=== PATIENT | female | born 1955 | race Caucasian/White ===

== ENCOUNTER 2017-09-02 09:02 | Emergency (ER) | payer BC ==
[~2017-09-02 09:02] MED LIST: Iopamidol 370 76% 100 ML VIAL ONE
[2017-09-02] MEDS ORDERED: Fentanyl 100 MCG/2 ML VIAL ONE (09:23)
[2017-09-02] MEDS ORDERED: Ondansetron HCl/PF 4 MG/2 ML Vial ONE (09:23)
[2017-09-02 09:28] LABS: #Lymphocytes 1.8 thou/uL (1.20-3.40); #Neutrophils 16.7 thou/uL (1.40-6.50); %Basophils 0.2 % (0.0-1.0); %Lymphocytes 9.2 % (21.0-51.0); %Monocytes 5.1 % (0.0-10.0); %Neutrophils 85.5 % (42.0-75.0); Hemoglobin 15.1 g/dL (12.0-16.0); Mean Corpuscular HGB CONC 33.2 g/dL (32.0-36.0); Mean Corpuscular Hemoglobin 28.5 pg (27.0-31.0); Mean Corpuscular Volume 85.7 fl (81.0-99.0); Mean Platelet Volume 7.9 fL (7.4-10.4); Platelet Count 291 thou/uL (130-400); RBC Distribution Width 11.7 % (11.5-14.5); White Blood Cell (WBC) Count 19.6 thou/uL (4.8-10.8)
[2017-09-02 09:43] LABS: ALT (SGPT) 45 U/L (8-55); AST (SGOT) 34 U/L (5-34); Albumin 4.2 g/dL (3.4-4.8); Alkaline Phosphatase 94 U/L (40-150); Anion Gap 18 mmol/L (10-20); BUN (Urea Nitrogen) 18 mg/dL (9.8-20.1); Bilirubin, Total 0.8 mg/dL (0.2-1.2); CK (CPK) 82 U/L (29-168); Calc. Creatinine Clearance 0 mL/min (70-130); Calcium 9.6 mg/dL (7.8-10.44); Carbon Dioxide 23 mmol/L (23-31); Chloride 98 mmol/L (98-107); Estimated GFR-MDRD 59; Glucose 138 mg/dL (80-115); Lipase 16 U/L (8-78); Potassium 4.2 mmol/L (3.5-5.1); Protein, Total 7.2 g/dL (6.0-8.3); Sodium 135 mmol/L (136-145)
[2017-09-02 09:44] LABS: Troponin I Less than 0.010 ng/mL (< 0.028)
[2017-09-02] MEDS ORDERED: Ketorolac Tromethamine 30 MG/ML VIAL ONE (09:48)
--- NOTE | 2017-09-02 09:53 | RAD ---
CHEST 1 VIEW: Date: 09/02/17 HISTORY: 61-year-old female with history of chest pain. Prior cholecystectomy on 09/01/17. Bloating and right upper quadrant pain with breathing. FINDINGS: There is a moderate amount of free intraperitoneal air, presumably residual from recent cholecystecto my. No confluent pneumonia or overt edema. Slight costophrenic angle blunting, probably small pleural effusions. IMPRESSION: Free intraperitoneal air, presumably from post cholecystectomy. No confluent pneumonia or overt edema . Poor inspiration. Slight costophrenic angle blunting, possibly very small effusions. POS: [facility]
--- NOTE | 2017-09-02 10:41 | CT ---
CHEST CT ANGIOGRAM INCLUDING 3D RENDERING ABDOMEN AND PELVIC CT SCAN WITH IV CONTRAST: Date: 09/02/17 HISTORY: Pain, bloating, difficulty breathing secondary to pain, elevated D-Dimer. Status post laparoscopic ch olecystectomy yesterday. FINDINGS: CHEST CT ANGIOGRAM WITH 3D RENDERING: No significant CT evidence for acute pulmonary embolism. No mediastinal mass or adenopathy. There are some minimal pleural based parenchymal changes in the dependent portions of both lungs and lower lob es, probably related to some subsegmental atelectasis. No mediastinal mass or adenopathy. No evidence for aortic aneurysm or dissection. Moderate amount of free intraperitoneal air noted within the uppe r abdomen. Recent cholecystectomy changes. IMPRESSION: No significant CT evidence for acute pulmonary embolism. Bibasilar pleural based parenchymal changes, probably subsegmental atelectasis. ABDOMEN AND PELVIC CT SCAN WITH IV CONTRAST: Again noted are bibasilar posterior pleural based parenchymal changes, probably subsegmental atelecta sis. There is a moderate amount of free intraperitoneal air. There are scattered areas of loculated a ir and some fluid within the right-sided mesentery extending somewhat from the operative bed region o f the gallbladder down into the right mid abdomen and right lower quadrant with some free fluid noted around the liver and in the right colonic gutter, and in the pelvis. The liver appears unremarkable. Pancreas, spleen, and adrenal glands are unremarkable. No evidence for renal acute obstruction. IMPRESSION: Moderate amount of free intraperitoneal air as well as some free intraperitoneal fluid. Scattered are as of small fluid collection, air collection, and fat stranding in the right side of the abdomen exte nding from the gallbladder bed region caudally down the right abdomen into the right lower quadrant. I favor these changes being related to the recent post cholecystectomy. However, if the patient's cli nical situation worsens or does not resolve over time, a short-term follow-up study might be consider ed. POS: [facility]
== END 2017-09-02 11:16 | disposition home or self-care (01) ==
LOC: SCSER 09:02
DX: G89.18 Other acute postprocedural pain (principal); E78.5 Hyperlipidemia, unspecified; F32.9 Major depressive disorder, single episode, unspecified; Z79.899 Other long term (current) drug therapy
CPT/HCPCS: 71045; 71275; 74177; 80053; 82553; 83690; 84484; 85025; 85379; 93005; 96361; 96374; 96375; J1885; J2405; J3010

== ENCOUNTER 2017-09-03 16:08 | Inpatient (IN) | payer BC ==
[2017-09-03 16:45] LABS: Hemoglobin 15.5 g/dL (12.0-16.0); Mean Corpuscular HGB CONC 32.5 g/dL (32.0-36.0); Mean Corpuscular Hemoglobin 29.8 pg (27.0-31.0); Mean Corpuscular Volume 91.7 fl (81.0-99.0); Mean Platelet Volume 7.6 fL (7.4-10.4); Platelet Count 267 thou/uL (130-400); RBC Distribution Width 12.1 % (11.5-14.5); Red Blood Cell (RBC) Count 5.19 mill/uL (4.20-5.40); White Blood Cell (WBC) Count 19.2 thou/uL (4.8-10.8)
[2017-09-03 17:01] LABS: Band 28 % (5-11); Lymphocytes 9 % (21-51); MDiff Complete? YES; Monocytes 7 % (0-10); Neutrophil 56 % (42-75); PLT Morphology Comment Appears Adequate; RBC Morphology Normal; Vacuoles SLIGHT
[2017-09-03 17:05] LABS: ALT (SGPT) 35 U/L (8-55); AST (SGOT) 25 U/L (5-34); Albumin 3.8 g/dL (3.4-4.8); Alkaline Phosphatase 113 U/L (40-150); Anion Gap 15 mmol/L (10-20); BUN (Urea Nitrogen) 14 mg/dL (9.8-20.1); Bilirubin, Total 1.6 mg/dL (0.2-1.2); Calc. Creatinine Clearance 0 mL/min (70-130); Calcium 9.8 mg/dL (7.8-10.44); Carbon Dioxide 24 mmol/L (23-31); Chloride 97 mmol/L (98-107); Estimated GFR-MDRD 59; Globulin 3.5 g/dL (2.4-3.5); Glucose 114 mg/dL (80-115); Potassium 4.5 mmol/L (3.5-5.1); Protein, Total 7.3 g/dL (6.0-8.3); Sodium 131 mmol/L (136-145)
[2017-09-03] MEDS ORDERED: Fentanyl 100 MCG/2 ML VIAL ONE (17:34)
[2017-09-03] MEDS ORDERED: Ondansetron HCl/PF 4 MG/2 ML Vial ONE (17:34)
[2017-09-03] MEDS ORDERED: Piperacillin/Tazobactam 3.375 GM in Sodium Chloride 0.9% 100 ML IVPB SCH (17:45)
[2017-09-03] MEDS ORDERED: Acetaminophen 1,000 MG in Premix Bag 1 BAG IVPB SCH (17:45)
[2017-09-03 18:16] LABS: Bilirubin Negative (Negative); Blood, Urine Trace (Negative); Clarity CLEAR (Clear); Glucose, Urine (Dipstick) Negative (Negative); Leukocyte Negative (Negative); Nitrite Negative (Negative); Protein, Urine (Dipstick) 30 mg/dL (Neg-Trace); Specific Gravity, Urine 1.014 (1.002-1.036); Urobilinogen 0.2 mg/dL (0.2-1.0); pH, Urine 7.5 (5.0-9.0)
--- NOTE | 2017-09-03 18:17 | HP ---
CHIEF COMPLAINT: Abdominal pain. HISTORY OF PRESENT ILLNESS: This is a 61-year-old female who is status post cholecystectomy on by Dr. Galindo for symptomatic gallstones. She returned to the emergency room yesterday where she kerns d CT and labs revealing infectious count was elevated; however, she was afebrile, feeling better afte r IV fluids. She had some inflammatory change in the right upper quadrant and appropriate amount of postoperative air. The patient notes fever to 102 this afternoon. I had her come back to the emerge ncy room. She is complaining of pain in the whole abdomen that is mild, more severe in the right zeke e, not really drink in much at home, just does not have an appetite. No passing gas or bowel movemen t since Monday. PAST MEDICAL HISTORY: She denies any significant heart, lung, diabetes. She does have high choleste rol, anxiety. PAST SURGICAL HISTORY: Hysterectomy, laparoscopic cholecystectomy. MEDICINES TAKEN DAILY: Bupropion and a hypercholesterol medication. ALLERGIES: She has had no known drug allergies. REVIEW OF SYSTEMS: Otherwise, negative. PHYSICAL EXAMINATION: VITAL SIGNS: Blood pressure 124/85, her pulse is 120, temperature now is 102, respirations are 14. HEENT: Sclerae are anicteric. Oropharynx clear. NECK: No lymphadenopathy. CHEST: Clear. HEART: Increased rate, regular rhythm. ABDOMEN: Soft, diffusely distended, mildly tender, more tender in the right side. Healing incisions without hernia or infection. LABORATORY DATA: White cell count is 19. She has 28 bands. Sodium 131, potassium 4.5, creatinine 0 .96, bilirubin 1.6. Alkaline phosphatase 113. AST, ALT are normal 25 and 35. ASSESSMENT: Postoperative fever with CT showing some inflammatory change yesterday, bilirubin now is 1.7. PLAN: Admit to hospital for IV fluid resuscitation, broad-spectrum antibiotics, supportive care. It could be a bile leak. Based on her labs tomorrow, we will decide whether a repeat CAT scan or proce ed with HIDA scan.
[2017-09-03 18:18] LABS: Bacteria/HPF None Seen HPF (None Seen); Hyaline Casts/LPF 0-3 HYALINE CAST LPF (0-3 Hyaline); RBC/HPF 0-3 HPF (0-3); Squamous Epithelial None Seen HPF (0-3); WBC/HPF 0-3 HPF (0-3)
--- NOTE | 2017-09-03 19:38 | RAD ---
CHEST ONE VIEW:: History: Post op fever. Comparison: Prior day. FINDINGS: Pneumoperitoneum is similar. There is elevation of the right hemidiaphragm with atelectasis. No pneum othorax. The left lung is relatively clear. IMPRESSION: Similar examination of chest. There is pneumoperitoneum. POS: [facility]
[2017-09-03] MEDS ORDERED: Promethazine HCl 25 MG/ML VIAL IM PRN (20:43)
[2017-09-03] MEDS ORDERED: Dextrose 50% Abboject 50 ML SYRINGE SLOW IVP PRN (20:43)
[2017-09-03] MEDS ORDERED: hydrALAZINE 20 MG/ML VIAL SLOW IVP PRN (20:43)
[2017-09-03] MEDS ORDERED: Calcium Carbonate 500 MG ChewTAB PO PRN (20:43)
[2017-09-03] MEDS ORDERED: Dextrose 5% in Water 1,000 ML IV PRN (20:43)
[2017-09-03] MEDS ORDERED: Fentanyl 100 MCG/2 ML VIAL SLOW IVP PRN (20:43)
[2017-09-03] MEDS ORDERED: Acetaminophen 1,000 MG in Premix Bag 1 BAG IVPB PRN (20:43)
[2017-09-03] MEDS ORDERED: Mag-Al 1200 mg/1200 mg/30 ML UDCUP PO PRN (20:43)
[2017-09-03] MEDS: D5 1/2 NS w/20 mEq KCL 1,000 ML IV SCH (21:54)
[2017-09-03] MEDS: Famotidine 20 MG TAB PO SCH (21:56)
[2017-09-03] MEDS: Famotidine/PF 20 mg/2ml Vial SLOW IVP SCH (21:56)
[2017-09-03] MEDS: Ketorolac Tromethamine 30 MG/ML VIAL IVP PRN (21:56)
[2017-09-03] MEDS: Ondansetron HCl/PF 4 MG/2 ML Vial IVP PRN (21:56)
[2017-09-04] MEDS: Piperacillin/Tazobactam 3.375 GM in Sodium Chloride 0.9% 100 ML IVPB SCH ×5 (00:20→23:57)
[2017-09-04 02:13] VITALS: BMI 26.1
[2017-09-04 04:22] LABS: #Eosinphils 0.4 thou/uL (0.0-0.7); #Lymphocytes 1.6 thou/uL (1.20-3.40); #Monocytes 0.9 thou/uL (0.11-0.59); %Basophils 0.3 % (0.0-1.0); %Eosinophils 2.6 % (0.0-10.0); %Lymphocytes 10.5 % (21.0-51.0); %Monocytes 5.8 % (0.0-10.0); %Neutrophils 80.8 % (42.0-75.0); Hemoglobin 11.2 g/dL (12.0-16.0); Mean Corpuscular HGB CONC 32.4 g/dL (32.0-36.0); Mean Corpuscular Hemoglobin 30.1 pg (27.0-31.0); Mean Corpuscular Volume 92.8 fl (81.0-99.0); Mean Platelet Volume 7.5 fL (7.4-10.4); Platelet Count 190 thou/uL (130-400); RBC Distribution Width 12.1 % (11.5-14.5); Red Blood Cell (RBC) Count 3.72 mill/uL (4.20-5.40); White Blood Cell (WBC) Count 14.8 thou/uL (4.8-10.8)
[2017-09-04 04:56] LABS: ALT (SGPT) 19 U/L (8-55); AST (SGOT) 13 U/L (5-34); Albumin 2.5 g/dL (3.4-4.8); Alkaline Phosphatase 82 U/L (40-150); Anion Gap 7 mmol/L (10-20); BUN (Urea Nitrogen) 10 mg/dL (9.8-20.1); Bilirubin, Total 0.9 mg/dL (0.2-1.2); Calc. Creatinine Clearance 65 mL/min (70-130); Calcium 7.9 mg/dL (7.8-10.44); Carbon Dioxide 25 mmol/L (23-31); Chloride 109 mmol/L (98-107); Estimated GFR-MDRD 73; Globulin 2.3 g/dL (2.4-3.5); Glucose 168 mg/dL (80-115); Lipase Less than 4 U/L (8-78); Potassium 4.4 mmol/L (3.5-5.1); Protein, Total 4.8 g/dL (6.0-8.3); Sodium 137 mmol/L (136-145)
[2017-09-04] MEDS: Fentanyl 100 MCG/2 ML VIAL SLOW IVP PRN ×2 (06:26→08:20)
[2017-09-04] MEDS: D5 1/2 NS w/20 mEq KCL 1,000 ML IV SCH ×3 (07:22→20:33)
[2017-09-04] MEDS: Ondansetron HCl/PF 4 MG/2 ML Vial IVP PRN (08:19)
[2017-09-04] MEDS: Famotidine/PF 20 mg/2ml Vial SLOW IVP SCH ×2 (08:19→20:23)
[2017-09-04] MEDS: Famotidine 20 MG TAB PO SCH ×2 (09:52→20:41)
[2017-09-04] MEDS: Ketorolac Tromethamine 30 MG/ML VIAL IVP PRN ×2 (10:31→17:47)
--- NOTE | 2017-09-04 11:03 | CT ---
CT OF THE ABDOMEN AND PELVIS WITH CONTRAST: Date: 09/04/17 COMPARISON: None. HISTORY: Right-sided abdominal pain since cholecystectomy on Monday. Pain is in the right lower quadrant and i s associated with fever. TECHNIQUE: Multiple contiguous axial images were obtained in a CT of the abdomen and pelvis with contrast. PO co ntrast was administered. Coronal reformats were performed. FINDINGS: The patient is status post cholecystectomy. Enteric contrast was administered. This is seen within mu ltiple small bowel loops. There is a small amount of free fluid in the abdomen and pelvis. Moderate f ree air seen in the abdomen. There is an area in the right lower quadrant of the abdomen adjacent to the cecum where there is small bowel contrast which does not appear to conform to small bowel loops a nd is concerning for leak of enteric contrast. The likely source for this leak is a small bowel loop in the right lower quadrant of the abdomen. The fluid collection and enteric contrast are seen in an area measuring approximately 12.2 cm in length and 3.9 cm in width. The small bowel loops are normal in caliber without significant distention. The colon is nondistended. There are scattered diverticula in the colon. The liver, kidneys, and adrenal glands are unremarkable. Calcifications in the spleen are likely from prior granulomatous disease. There is a calcification in the body of the pancreas nearing the tail o f the pancreas. The patient is status post hysterectomy. No abdominal or pelvic lymphadenopathy seen. Atherosclerotic calcifications are seen in the aorta. There is a small right pleural effusion with adjacent atelectasis. Mild degenerative changes are seen in the spine. Stranding changes are seen in the abdominal wall from recent surgery. IMPRESSION: 1. There appears to be a small bowel injury with leak of air, free fluid, and enteric contrast in th e right lower quadrant of the abdomen. 2. Diverticulosis. A message was left on Dr. Galindo's phone at 1025 hours on 09/04/17. In addition, Dr. Galindo's assistant womens volleyball coach , Derrek, was notified of the findings at 1026 hours on 09/04/17. She will attempt to get ahold of Ang Galindo urgently. CODE CR. POS: [facility]
[2017-09-04] MEDS ORDERED: Bupivacaine/Epinephrine 0.25% 30 ML VIAL ONE (13:17)
[2017-09-04] MEDS ORDERED: Fentanyl 100 MCG/2 ML VIAL ONE ×3 (13:25→16:16)
[2017-09-04] MEDS ORDERED: PROPOFOL 200 MG/20 ML VIAL ONE (14:17)
[2017-09-04] MEDS ORDERED: PHENYLEPHRINE-NS 100 MCG/ML 10 ML SYRINGE ONE (14:17)
[2017-09-04] MEDS ORDERED: Glycopyrrolate 0.2 MG/ML 5 ML SYRINGE ONE (14:17)
[2017-09-04] MEDS ORDERED: Lidocaine 1% PF 5 ML VIAL ONE (14:17)
[2017-09-04] MEDS ORDERED: Dexamethasone 20 MG/5 ML VIAL ONE (14:17)
[2017-09-04] MEDS ORDERED: Morphine 4 MG/ML Carpuject SLOW IVP PRN ×2 (14:58→15:07)
[2017-09-04] MEDS ORDERED: Ondansetron HCl/PF 4 MG/2 ML Vial IVP PRN ×2 (14:58→15:17)
[2017-09-04] MEDS ORDERED: Dextrose 5% in Water 1,000 ML IV PRN (14:58)
[2017-09-04] MEDS ORDERED: Promethazine HCl 25 MG/ML VIAL IM PRN ×3 (14:58→15:25)
[2017-09-04] MEDS ORDERED: hydrALAZINE 20 MG/ML VIAL SLOW IVP PRN (14:58)
[2017-09-04] MEDS ORDERED: Dextrose 50% Abboject 50 ML SYRINGE SLOW IVP PRN (14:58)
[2017-09-04] MEDS ORDERED: Meperidine HCl/PF 25 MG/ML VIAL SLOW IVP PRN (15:17)
[2017-09-04] MEDS ORDERED: Promethazine HCl 25 MG/ML VIAL ONE (15:22)
[2017-09-04] MEDS ORDERED: diphenhydrAMINE 50 MG/ML VIAL IM PRN (15:25)
[2017-09-04] MEDS ORDERED: Zolpidem Tartrate 5 MG TAB PO PRN (15:25)
[2017-09-04] MEDS ORDERED: diphenhydrAMINE 50 MG/ML VIAL IVP PRN (15:25)
[2017-09-04] MEDS ORDERED: Naloxone HCl 0.4 mg/ml Vial IV PRN (15:25)
[2017-09-04] MEDS ORDERED: Fentanyl 5000 MCG/250 ML CADD IVPB PRN (15:25)
[2017-09-04] MEDS ORDERED: diphenhydrAMINE 25 MG CAP PO PRN (15:25)
[2017-09-04] MEDS ORDERED: Communication Order-Pharmacy FS SCH (15:30)
[2017-09-04] MEDS ORDERED: ISOVUE-370 76%-LOCM 1 ML ONE (15:44)
[2017-09-04] MEDS ORDERED: fentaNYL Citrate/PF 2,000 MCG in Sodium Chloride 0.9% 60 ML IV PRN (15:45)
--- NOTE | 2017-09-04 16:26 | HP ---
CHIEF COMPLAINT: Abdominal pain. HISTORY OF PRESENT ILLNESS: The patient is a 61-year-old female who underwent a laparoscopic cholecy stectomy on Monday. She developed severe pain and fever to 102 associated with nausea, no vomiting. Her pain is primarily on the right lower side. She had normal liver function tests. She is not pas sing flatus, no bowel movement. PAST MEDICAL HISTORY: Reflux. PAST SURGICAL HISTORY: Cholecystectomy, hysterectomy, section. MEDICATIONS: Bupropion, atorvastatin, alprazolam, Pepcid. ALLERGIES: No known drug allergies. SOCIAL HISTORY: , one half smoke per day, moderate alcohol. PHYSICAL EXAMINATION: VITAL SIGNS: Temperature 98.2, pulse 91, blood pressure 99/63. GENERAL: Lying still in discomfort. HEENT: Unremarkable. LUNGS: Clear. HEART: Regular rate and rhythm. ABDOMEN: Soft, mild right lower quadrant tenderness. She has a well healed surgical scar low midlin e. Fresh incisions from laparoscopic cholecystectomy. LABORATORY DATA AND X-RAY FINDINGS: White count 14.8, hemoglobin and hematocrit 11 and 34, platelet count 190. Electrolytes are fine. Initial CT showed some free fluid and free air consistent with re cent laparoscopy; however, she has had a repeated of that and it is consistent with a small bowel inj ury. ASSESSMENT: Small injury. PLAN: Return to or with repair of small bowel.
--- NOTE | 2017-09-04 16:34 | OP ---
PREOPERATIVE DIAGNOSIS: Small bowel enterotomy with abscess. SURGEON: Dago Galindo M.D. PROCEDURES PERFORMED: Diagnostic laparoscopy converted to exploratory laparotomy with repair of ente rotomy and drainage of abscess. INDICATIONS: This is a 61-year-old female who underwent a laparoscopic cholecystectomy on Monday. S he reportedly was having a lot of pain and then started having fever. She went to the emergency room where a CT scan showed some free air and free fluid consistent with postop findings. She had a very elevated white count and continued to get sicker, then she got better, but she was still pretty tend er on the right lower quadrant. A repeat CT scan with contrast showed contrast extravasation into an abscess cavity consistent with an enterotomy. FINDINGS: A mid small bowel enterotomy and about 150 mL abscess cavity. PROCEDURE IN DETAIL: After informed consent was obtained, the patient was taken to the operating francesco m and given general endotracheal anesthesia. She was placed in the supine position. Her abdomen was prepped and draped in the usual fashion. Local anesthesia infiltrated subcutaneously and deep and a 5 mm incision was performed on the left abdomen. A Veress needle inserted. Drop test performed. P neumoperitoneum was created to a volume of 2 liters of carbon dioxide. Utilizing a bladeless 5 mm tr ocar and 0 degree laparoscope, direct visual entry in the abdominal cavity was performed. Pneumoperi toneum was created to a pressure of 15 mmHg. There was no obvious enteric fluid initially within the abdomen. There were some adhesions in the right lower abdomen from a previous appendectomy. Using the LigaSure, these were taken down and this allowed reflection of the omentum medially and there was a cavity of enteric fluid. Cultures were obtained. This was aspirated and the small bowel run back wards, but I could not find the source. There was too much inflammation, because it was tucked up un derneath the omentum and I just could not figure it out, so I converted to an open procedure. Her pr evious midline incision was opened. The subcu divided sharply. The fascia was incised with a 10 erna de. This allowed me to run the bowel from ligament of Treitz to ileocecal valve or from ileocecal va lve to ligament of Treitz and there I was able to identify and find the enterotomy in the mid small b owel. This enterotomy was closed transversely with interrupted 3-0 Vicryl sutures. The rest of the small bowel was run and repeatedly run and there were no other injuries seen. The abdomen was thorou ghly irrigated. Irrigation fluid removed with multiple liters of fluid, but there was kind of a rind around where the abscess cavity was and for that reason, a drain was placed and brought out through a right lower quadrant abdomen and placed in the abscess cavity is a 19-Urdu round drain. The hemo stasis assured. The omentum placed anteriorly and the fascia closed with a running loop #1 PDS. The subcutaneous was irrigated and skin closed loosely with skin jorge. Katrin were placed between the jorge and a sterile bandage applied. The two 5 mm laparoscopic incisions were also closed with in terrupted 4-0 Rapide. Dermabond applied to this. The patient tolerated the procedure well and trans ferred to recovery in good condition.
[2017-09-05 04:22] LABS: #Basophils 0.2 thou/uL (0.0-0.2); #Lymphocytes 0.6 thou/uL (1.20-3.40); #Monocytes 0.6 thou/uL (0.11-0.59); #Neutrophils 10.9 thou/uL (1.40-6.50); %Basophils 1.6 % (0.0-1.0); %Eosinophils 0.1 % (0.0-10.0); %Monocytes 5.2 % (0.0-10.0); %Neutrophils 88.1 % (42.0-75.0); Hemoglobin 10.5 g/dL (12.0-16.0); Mean Corpuscular HGB CONC 31.7 g/dL (32.0-36.0); Mean Corpuscular Hemoglobin 29.6 pg (27.0-31.0); Mean Corpuscular Volume 93.4 fl (81.0-99.0); Mean Platelet Volume 7.9 fL (7.4-10.4); Platelet Count 216 thou/uL (130-400); RBC Distribution Width 12.2 % (11.5-14.5); Red Blood Cell (RBC) Count 3.55 mill/uL (4.20-5.40); White Blood Cell (WBC) Count 12.3 thou/uL (4.8-10.8)
[2017-09-05 04:24] LABS: Anion Gap 9 mmol/L (10-20); BUN (Urea Nitrogen) 6 mg/dL (9.8-20.1); Calc. Creatinine Clearance 69 mL/min (70-130); Calcium 8.2 mg/dL (7.8-10.44); Carbon Dioxide 25 mmol/L (23-31); Chloride 108 mmol/L (98-107); Estimated GFR-MDRD 77; Glucose 187 mg/dL (80-115); Sodium 137 mmol/L (136-145)
[2017-09-05] MEDS: Piperacillin/Tazobactam 3.375 GM in Sodium Chloride 0.9% 100 ML IVPB SCH ×4 (05:21→23:07)
[2017-09-05] MEDS: D5 1/2 NS w/20 mEq KCL 1,000 ML IV SCH ×3 (05:21→18:09)
[2017-09-05] MEDS: Enoxaparin Sodium 40 MG/0.4 ML SYRINGE SC SCH (08:32)
[2017-09-05] MEDS: Famotidine/PF 20 mg/2ml Vial SLOW IVP SCH ×2 (08:33→23:15)
[2017-09-05] MEDS: Famotidine 20 MG TAB PO SCH ×2 (08:33→23:17)
--- NOTE | 2017-09-05 13:53 | PDOC.GSPN ---
Surgery Progress Note: Subj - Subjective Narrative: Pain well controlled. No nausea. Surgery Progress Note: Obj - Vital signs Vital signs: Vital Signs - Most Recent Temp Pulse Resp BP Pulse Ox 97.6 F 75 16 147/79 H 95 09/05/17 12:27 09/05/17 12:27 09/05/17 12:27 09/05/17 12:27 09/05/17 12:27 - Physical Exam General: no distress Abdomen: soft, tender (appropriately), distended Wound: dressing clean,dry,intact Surgery Progress Note: Results - Labs Result Diagrams: 09/05/17 03:06 09/05/17 03:06 Lab results: Laboratory Results WBC 12.3 thou/uL (4.8-10.8) H 09/05/17 03:06 RBC 3.55 mill/uL (4.20-5.40) L 09/05/17 03:06 Hgb 10.5 g/dL (12.0-16.0) L 09/05/17 03:06 Hct 33.2 % (36.0-47.0) L 09/05/17 03:06 MCV 93.4 fl (81.0-99.0) 09/05/17 03:06 MCH 29.6 pg (27.0-31.0) 09/05/17 03:06 MCHC 31.7 g/dL (32.0-36.0) L 09/05/17 03:06 RDW 12.2 % (11.5-14.5) 09/05/17 03:06 Plt Count 216 thou/uL (130-400) 09/05/17 03:06 MPV 7.9 fL (7.4-10.4) 09/05/17 03:06 Neutrophils % 88.1 % (42.0-75.0) H 09/05/17 03:06 Neutrophils % (Manual) 56 % (42-75) 09/03/17 16:32 Band Neuts % (Manual) 28 % (5-11) H 09/03/17 16:32 Lymphocytes % 5.0 % (21.0-51.0) L 09/05/17 03:06 Lymphocytes % (Manual) 9 % (21-51) L 09/03/17 16:32 Monocytes % 5.2 % (0.0-10.0) 09/05/17 03:06 Monocytes % (Manual) 7 % (0-10) 09/03/17 16:32 Eosinophils % 0.1 % (0.0-10.0) 09/05/17 03:06 Basophils % 1.6 % (0.0-1.0) H 09/05/17 03:06 Neutrophils # 10.9 thou/uL (1.40-6.50) H 09/05/17 03:06 Lymphocytes # 0.6 thou/uL (1.20-3.40) L 09/05/17 03:06 Monocytes # 0.6 thou/uL (0.11-0.59) H 09/05/17 03:06 Eosinophils # 0.0 thou/uL (0.0-0.7) 09/05/17 03:06 Basophils # 0.2 thou/uL (0.0-0.2) 09/05/17 03:06 WBC Morphology SLIGHT 09/03/17 16:32 Plt Morphology Comment Appears Adequate 09/03/17 16:32 RBC Morph Comment Normal 09/03/17 16:32 Sodium 137 mmol/L (136-145) 09/05/17 03:06 Potassium 5.0 mmol/L (3.5-5.1) 09/05/17 03:06 Chloride 108 mmol/L (98-107) H 09/05/17 03:06 Carbon Dioxide 25 mmol/L (23-31) 09/05/17 03:06 Anion Gap 9 mmol/L (10-20) L 09/05/17 03:06 BUN 6 mg/dL (9.8-20.1) L 09/05/17 03:06 Creatinine 0.76 mg/dL (0.6-1.1) 09/05/17 03:06 Estimated GFR (MDRD) 77 09/05/17 03:06 Glucose 187 mg/dL (80-115) H 09/05/17 03:06 POC Glucose 137 mg/dL (70-110) H 09/04/17 17:12 Lactic Acid 1.4 mmol/L (0.5-2.2) 09/03/17 16:33 Calcium 8.2 mg/dL (7.8-10.44) 09/05/17 03:06 Total Bilirubin 0.9 mg/dL (0.2-1.2) 09/04/17 03:50 AST 13 U/L (5-34) 09/04/17 03:50 ALT 19 U/L (8-55) 09/04/17 03:50 Alkaline Phosphatase 82 U/L (40-150) 09/04/17 03:50 Serum Total Protein 4.8 g/dL (6.0-8.3) L 09/04/17 03:50 Albumin 2.5 g/dL (3.4-4.8) L 09/04/17 03:50 Globulin 2.3 g/dL (2.4-3.5) L 09/04/17 03:50 Albumin/Globulin Ratio 1.1 g/dL (1.2-2.2) L 09/04/17 03:50 Lipase Less than 4 U/L (8-78) L 09/04/17 03:50 Urine Color YELLOW (Yellow) 09/03/17 18:00 Urine Clarity CLEAR (Clear) 09/03/17 18:00 Urine pH 7.5 (5.0-9.0) 09/03/17 18:00 Ur Specific [place] 1.014 (1.002-1.036) 09/03/17 18:00 Urine Protein 30 mg/dL (Neg-Trace) H 09/03/17 18:00 Urine Glucose (UA) Negative mg/dL (Negative) 09/03/17 18:00 Urine Ketones 40 mg/dL (Negative) H 09/03/17 18:00 Urine Blood Trace (Negative) H 09/03/17 18:00 Urine Nitrite Negative (Negative) 09/03/17 18:00 Urine Bilirubin Negative (Negative) 09/03/17 18:00 Urine Urobilinogen 0.2 mg/dL (0.2-1.0) 09/03/17 18:00 Ur Leukocyte Esterase Negative (Negative) 09/03/17 18:00 Urine RBC 0-3 HPF (0-3) 09/03/17 18:00 Urine WBC 0-3 HPF (0-3) 09/03/17 18:00 Ur Squamous Epith Cells None Seen HPF (0-3) 09/03/17 18:00 Urine Bacteria None Seen HPF (None Seen) 09/03/17 18:00 Hyaline Casts 0-3 HYALINE CAST LPF (0-3 Hyaline) 09/03/17 18:00 Surgery Progress Note: A/P - Problem (1) Peritonitis Current Visit: Yes Code(s): K65.9 - PERITONITIS, UNSPECIFIED Status: Acute Assessment and Plan: Will allow clears. encouraged ambulation
[2017-09-06] MEDS: Piperacillin/Tazobactam 3.375 GM in Sodium Chloride 0.9% 100 ML IVPB SCH ×4 (05:03→23:04)
[2017-09-06 05:54] LABS: #Basophils 0.1 thou/uL (0.0-0.2); #Eosinphils 0.9 thou/uL (0.0-0.7); #Lymphocytes 2.1 thou/uL (1.20-3.40); #Monocytes 0.8 thou/uL (0.11-0.59); #Neutrophils 6.8 thou/uL (1.40-6.50); %Basophils 0.5 % (0.0-1.0); %Eosinophils 8.7 % (0.0-10.0); %Neutrophils 63.7 % (42.0-75.0); Mean Corpuscular Hemoglobin 30.6 pg (27.0-31.0); Mean Corpuscular Volume 92.8 fl (81.0-99.0); Mean Platelet Volume 7.5 fL (7.4-10.4); Platelet Count 235 thou/uL (130-400); RBC Distribution Width 12.3 % (11.5-14.5); Red Blood Cell (RBC) Count 3.26 mill/uL (4.20-5.40); White Blood Cell (WBC) Count 10.7 thou/uL (4.8-10.8)
[2017-09-06 06:19] LABS: Anion Gap 10 mmol/L (10-20); BUN (Urea Nitrogen) 8 mg/dL (9.8-20.1); Calc. Creatinine Clearance 69 mL/min (70-130); Calcium 8.3 mg/dL (7.8-10.44); Carbon Dioxide 26 mmol/L (23-31); Chloride 106 mmol/L (98-107); Estimated GFR-MDRD 77; Glucose 106 mg/dL (80-115); Potassium 3.9 mmol/L (3.5-5.1); Sodium 138 mmol/L (136-145)
[2017-09-06] MEDS: Famotidine/PF 20 mg/2ml Vial SLOW IVP SCH ×2 (08:25→18:04)
[2017-09-06] MEDS: Enoxaparin Sodium 40 MG/0.4 ML SYRINGE SC SCH (08:25)
[2017-09-06] MEDS: Famotidine 20 MG TAB PO SCH ×2 (08:30→18:02)
[2017-09-06] MEDS ORDERED: D5 1/2 NS w/20 mEq KCL 1,000 ML IV SCH (12:52)
--- NOTE | 2017-09-06 13:39 | PDOC.GSPN ---
Surgery Progress Note: Subj - Subjective Narrative: Passing flatus, no nausea, tolerating clear liquids Surgery Progress Note: Obj - Vital signs Vital signs: Vital Signs - Most Recent Temp Pulse Resp BP Pulse Ox 97.9 F 78 14 165/81 H 92 L 09/06/17 11:31 09/06/17 11:31 09/06/17 11:31 09/06/17 11:31 09/06/17 11:31 - Physical Exam General: no distress Respiratory: clear to auscultation Abdomen: non tender Wound: dressing clean,dry,intact Surgery Progress Note: Results - Labs Result Diagrams: 09/06/17 04:36 09/06/17 04:36 Lab results: Laboratory Results WBC 10.7 thou/uL (4.8-10.8) 09/06/17 04:36 RBC 3.26 mill/uL (4.20-5.40) L 09/06/17 04:36 Hgb 10.0 g/dL (12.0-16.0) L 09/06/17 04:36 Hct 30.3 % (36.0-47.0) L 09/06/17 04:36 MCV 92.8 fl (81.0-99.0) 09/06/17 04:36 MCH 30.6 pg (27.0-31.0) 09/06/17 04:36 MCHC 33.0 g/dL (32.0-36.0) 09/06/17 04:36 RDW 12.3 % (11.5-14.5) 09/06/17 04:36 Plt Count 235 thou/uL (130-400) 09/06/17 04:36 MPV 7.5 fL (7.4-10.4) 09/06/17 04:36 Neutrophils % 63.7 % (42.0-75.0) 09/06/17 04:36 Neutrophils % (Manual) 56 % (42-75) 09/03/17 16:32 Band Neuts % (Manual) 28 % (5-11) H 09/03/17 16:32 Lymphocytes % 20.0 % (21.0-51.0) L 09/06/17 04:36 Lymphocytes % (Manual) 9 % (21-51) L 09/03/17 16:32 Monocytes % 7.0 % (0.0-10.0) 09/06/17 04:36 Monocytes % (Manual) 7 % (0-10) 09/03/17 16:32 Eosinophils % 8.7 % (0.0-10.0) 09/06/17 04:36 Basophils % 0.5 % (0.0-1.0) 09/06/17 04:36 Neutrophils # 6.8 thou/uL (1.40-6.50) H 09/06/17 04:36 Lymphocytes # 2.1 thou/uL (1.20-3.40) 09/06/17 04:36 Monocytes # 0.8 thou/uL (0.11-0.59) H 09/06/17 04:36 Eosinophils # 0.9 thou/uL (0.0-0.7) H 09/06/17 04:36 Basophils # 0.1 thou/uL (0.0-0.2) 09/06/17 04:36 WBC Morphology SLIGHT 09/03/17 16:32 Plt Morphology Comment Appears Adequate 09/03/17 16:32 RBC Morph Comment Normal 09/03/17 16:32 Sodium 138 mmol/L (136-145) 09/06/17 04:36 Potassium 3.9 mmol/L (3.5-5.1) 09/06/17 04:36 Chloride 106 mmol/L (98-107) 09/06/17 04:36 Carbon Dioxide 26 mmol/L (23-31) 09/06/17 04:36 Anion Gap 10 mmol/L (10-20) 09/06/17 04:36 BUN 8 mg/dL (9.8-20.1) L 09/06/17 04:36 Creatinine 0.76 mg/dL (0.6-1.1) 09/06/17 04:36 Estimated GFR (MDRD) 77 09/06/17 04:36 Glucose 106 mg/dL (80-115) 09/06/17 04:36 POC Glucose 137 mg/dL (70-110) H 09/04/17 17:12 Lactic Acid 1.4 mmol/L (0.5-2.2) 09/03/17 16:33 Calcium 8.3 mg/dL (7.8-10.44) 09/06/17 04:36 Total Bilirubin 0.9 mg/dL (0.2-1.2) 09/04/17 03:50 AST 13 U/L (5-34) 09/04/17 03:50 ALT 19 U/L (8-55) 09/04/17 03:50 Alkaline Phosphatase 82 U/L (40-150) 09/04/17 03:50 Serum Total Protein 4.8 g/dL (6.0-8.3) L 09/04/17 03:50 Albumin 2.5 g/dL (3.4-4.8) L 09/04/17 03:50 Globulin 2.3 g/dL (2.4-3.5) L 09/04/17 03:50 Albumin/Globulin Ratio 1.1 g/dL (1.2-2.2) L 09/04/17 03:50 Lipase Less than 4 U/L (8-78) L 09/04/17 03:50 Urine Color YELLOW (Yellow) 09/03/17 18:00 Urine Clarity CLEAR (Clear) 09/03/17 18:00 Urine pH 7.5 (5.0-9.0) 09/03/17 18:00 Ur Specific [place] 1.014 (1.002-1.036) 09/03/17 18:00 Urine Protein 30 mg/dL (Neg-Trace) H 09/03/17 18:00 Urine Glucose (UA) Negative mg/dL (Negative) 09/03/17 18:00 Urine Ketones 40 mg/dL (Negative) H 09/03/17 18:00 Urine Blood Trace (Negative) H 09/03/17 18:00 Urine Nitrite Negative (Negative) 09/03/17 18:00 Urine Bilirubin Negative (Negative) 09/03/17 18:00 Urine Urobilinogen 0.2 mg/dL (0.2-1.0) 09/03/17 18:00 Ur Leukocyte Esterase Negative (Negative) 09/03/17 18:00 Urine RBC 0-3 HPF (0-3) 09/03/17 18:00 Urine WBC 0-3 HPF (0-3) 09/03/17 18:00 Ur Squamous Epith Cells None Seen HPF (0-3) 09/03/17 18:00 Urine Bacteria None Seen HPF (None Seen) 09/03/17 18:00 Hyaline Casts 0-3 HYALINE CAST LPF (0-3 Hyaline) 09/03/17 18:00 Surgery Progress Note: A/P - Problem (1) Peritonitis Current Visit: Yes Code(s): K65.9 - PERITONITIS, UNSPECIFIED Status: Acute Assessment and Plan: TKO IVF, advance to full liquids
[2017-09-06] MEDS: Ketorolac Tromethamine 30 MG/ML VIAL IVP PRN ×2 (13:55→23:04)
[2017-09-07] MEDS: Ketorolac Tromethamine 30 MG/ML VIAL IVP PRN (05:40)
[2017-09-07] MEDS: Piperacillin/Tazobactam 3.375 GM in Sodium Chloride 0.9% 100 ML IVPB SCH ×4 (05:40→23:58)
[2017-09-07] MEDS: Famotidine 20 MG TAB PO SCH ×2 (09:17→20:17)
[2017-09-07] MEDS: Enoxaparin Sodium 40 MG/0.4 ML SYRINGE SC SCH (09:18)
[2017-09-07] MEDS: Famotidine/PF 20 mg/2ml Vial SLOW IVP SCH ×2 (09:19→20:14)
[2017-09-07] MEDS ORDERED: Morphine 4 MG/ML Carpuject IVP PRN (09:54)
[2017-09-07] MEDS ORDERED: Morphine 2 MG/ML SYRINGE SLOW IVP PRN (10:41)
--- NOTE | 2017-09-07 13:15 | PDOC.GSPN ---
Surgery Progress Note: Subj - Subjective Narrative: tolerated full liquids, no nausea, passing gas Surgery Progress Note: Obj - Vital signs Vital signs: Vital Signs - Most Recent Temp Pulse Resp BP Pulse Ox 99.0 F 80 18 141/77 H 95 09/07/17 12:00 09/07/17 12:00 09/07/17 12:00 09/07/17 12:00 09/07/17 12:00 - Physical Exam General: no distress Abdomen: non tender Surgery Progress Note: Results - Labs Result Diagrams: 09/06/17 04:36 09/06/17 04:36 Lab results: Laboratory Results WBC 10.7 thou/uL (4.8-10.8) 09/06/17 04:36 RBC 3.26 mill/uL (4.20-5.40) L 09/06/17 04:36 Hgb 10.0 g/dL (12.0-16.0) L 09/06/17 04:36 Hct 30.3 % (36.0-47.0) L 09/06/17 04:36 MCV 92.8 fl (81.0-99.0) 09/06/17 04:36 MCH 30.6 pg (27.0-31.0) 09/06/17 04:36 MCHC 33.0 g/dL (32.0-36.0) 09/06/17 04:36 RDW 12.3 % (11.5-14.5) 09/06/17 04:36 Plt Count 235 thou/uL (130-400) 09/06/17 04:36 MPV 7.5 fL (7.4-10.4) 09/06/17 04:36 Neutrophils % 63.7 % (42.0-75.0) 09/06/17 04:36 Neutrophils % (Manual) 56 % (42-75) 09/03/17 16:32 Band Neuts % (Manual) 28 % (5-11) H 09/03/17 16:32 Lymphocytes % 20.0 % (21.0-51.0) L 09/06/17 04:36 Lymphocytes % (Manual) 9 % (21-51) L 09/03/17 16:32 Monocytes % 7.0 % (0.0-10.0) 09/06/17 04:36 Monocytes % (Manual) 7 % (0-10) 09/03/17 16:32 Eosinophils % 8.7 % (0.0-10.0) 09/06/17 04:36 Basophils % 0.5 % (0.0-1.0) 09/06/17 04:36 Neutrophils # 6.8 thou/uL (1.40-6.50) H 09/06/17 04:36 Lymphocytes # 2.1 thou/uL (1.20-3.40) 09/06/17 04:36 Monocytes # 0.8 thou/uL (0.11-0.59) H 09/06/17 04:36 Eosinophils # 0.9 thou/uL (0.0-0.7) H 09/06/17 04:36 Basophils # 0.1 thou/uL (0.0-0.2) 09/06/17 04:36 WBC Morphology SLIGHT 09/03/17 16:32 Plt Morphology Comment Appears Adequate 09/03/17 16:32 RBC Morph Comment Normal 09/03/17 16:32 Sodium 138 mmol/L (136-145) 09/06/17 04:36 Potassium 3.9 mmol/L (3.5-5.1) 09/06/17 04:36 Chloride 106 mmol/L (98-107) 09/06/17 04:36 Carbon Dioxide 26 mmol/L (23-31) 09/06/17 04:36 Anion Gap 10 mmol/L (10-20) 09/06/17 04:36 BUN 8 mg/dL (9.8-20.1) L 09/06/17 04:36 Creatinine 0.76 mg/dL (0.6-1.1) 09/06/17 04:36 Estimated GFR (MDRD) 77 09/06/17 04:36 Glucose 106 mg/dL (80-115) 09/06/17 04:36 POC Glucose 137 mg/dL (70-110) H 09/04/17 17:12 Lactic Acid 1.4 mmol/L (0.5-2.2) 09/03/17 16:33 Calcium 8.3 mg/dL (7.8-10.44) 09/06/17 04:36 Total Bilirubin 0.9 mg/dL (0.2-1.2) 09/04/17 03:50 AST 13 U/L (5-34) 09/04/17 03:50 ALT 19 U/L (8-55) 09/04/17 03:50 Alkaline Phosphatase 82 U/L (40-150) 09/04/17 03:50 Serum Total Protein 4.8 g/dL (6.0-8.3) L 09/04/17 03:50 Albumin 2.5 g/dL (3.4-4.8) L 09/04/17 03:50 Globulin 2.3 g/dL (2.4-3.5) L 09/04/17 03:50 Albumin/Globulin Ratio 1.1 g/dL (1.2-2.2) L 09/04/17 03:50 Lipase Less than 4 U/L (8-78) L 09/04/17 03:50 Urine Color YELLOW (Yellow) 09/03/17 18:00 Urine Clarity CLEAR (Clear) 09/03/17 18:00 Urine pH 7.5 (5.0-9.0) 09/03/17 18:00 Ur Specific [place] 1.014 (1.002-1.036) 09/03/17 18:00 Urine Protein 30 mg/dL (Neg-Trace) H 09/03/17 18:00 Urine Glucose (UA) Negative mg/dL (Negative) 09/03/17 18:00 Urine Ketones 40 mg/dL (Negative) H 09/03/17 18:00 Urine Blood Trace (Negative) H 09/03/17 18:00 Urine Nitrite Negative (Negative) 09/03/17 18:00 Urine Bilirubin Negative (Negative) 09/03/17 18:00 Urine Urobilinogen 0.2 mg/dL (0.2-1.0) 09/03/17 18:00 Ur Leukocyte Esterase Negative (Negative) 09/03/17 18:00 Urine RBC 0-3 HPF (0-3) 09/03/17 18:00 Urine WBC 0-3 HPF (0-3) 09/03/17 18:00 Ur Squamous Epith Cells None Seen HPF (0-3) 09/03/17 18:00 Urine Bacteria None Seen HPF (None Seen) 09/03/17 18:00 Hyaline Casts 0-3 HYALINE CAST LPF (0-3 Hyaline) 09/03/17 18:00 Surgery Progress Note: A/P - Problem (1) Peritonitis Current Visit: Yes Code(s): K65.9 - PERITONITIS, UNSPECIFIED Status: Acute Assessment and Plan: Improving daily. DC'd maria de jesus in wound today. GI soft diet, DC digital media coordinator. oral pain control
[2017-09-07] MEDS: HYDROcodone/Acetaminophen 10/325 mg Tablet PO PRN ×2 (13:16→20:17)
[2017-09-08] MEDS: Piperacillin/Tazobactam 3.375 GM in Sodium Chloride 0.9% 100 ML IVPB SCH ×4 (05:38→23:10)
[2017-09-08 08:55] LABS: #Eosinphils 0.5 thou/uL (0.0-0.7); #Lymphocytes 1.1 thou/uL (1.20-3.40); #Monocytes 0.8 thou/uL (0.11-0.59); %Basophils 0.4 % (0.0-1.0); %Eosinophils 6.4 % (0.0-10.0); %Monocytes 8.9 % (0.0-10.0); %Neutrophils 71.3 % (42.0-75.0); Hemoglobin 11.9 g/dL (12.0-16.0); Mean Corpuscular HGB CONC 34.1 g/dL (32.0-36.0); Mean Corpuscular Hemoglobin 30.8 pg (27.0-31.0); Mean Corpuscular Volume 90.3 fl (81.0-99.0); Mean Platelet Volume 7.3 fL (7.4-10.4); Platelet Count 340 thou/uL (130-400); RBC Distribution Width 12.1 % (11.5-14.5); Red Blood Cell (RBC) Count 3.87 mill/uL (4.20-5.40); White Blood Cell (WBC) Count 8.4 thou/uL (4.8-10.8)
[2017-09-08] MEDS: Famotidine 20 MG TAB PO SCH ×2 (09:45→20:30)
[2017-09-08] MEDS: Enoxaparin Sodium 40 MG/0.4 ML SYRINGE SC SCH (09:45)
[2017-09-08] MEDS: Famotidine/PF 20 mg/2ml Vial SLOW IVP SCH ×2 (09:45→20:30)
[2017-09-08] MEDS: Ondansetron HCl/PF 4 MG/2 ML Vial IVP PRN ×2 (09:48→17:28)
[2017-09-08] MEDS ORDERED: Milk Of Magnesia 30 ML UDCUP PO PRN (12:24)
[2017-09-08] MEDS ORDERED: Acetaminophen 325 MG TAB PO PRN (16:10)
[2017-09-08] MEDS ORDERED: Iopamidol 370 76% 50 ML VIAL FS ONE (16:45)
[2017-09-08] MEDS ORDERED: ISOVUE-370 76%-LOCM 1 ML ONE (16:45)
[2017-09-08 17:24] LABS: #Eosinphils 0.4 thou/uL (0.0-0.7); #Lymphocytes 1.1 thou/uL (1.20-3.40); #Monocytes 0.8 thou/uL (0.11-0.59); #Neutrophils 5.9 thou/uL (1.40-6.50); %Basophils 0.1 % (0.0-1.0); %Eosinophils 5.5 % (0.0-10.0); %Lymphocytes 13.5 % (21.0-51.0); %Monocytes 9.2 % (0.0-10.0); %Neutrophils 71.7 % (42.0-75.0); Hemoglobin 12.8 g/dL (12.0-16.0); Mean Corpuscular HGB CONC 32.7 g/dL (32.0-36.0); Mean Corpuscular Hemoglobin 29.5 pg (27.0-31.0); Mean Corpuscular Volume 90.1 fl (81.0-99.0); Platelet Count 368 thou/uL (130-400); RBC Distribution Width 12.3 % (11.5-14.5); Red Blood Cell (RBC) Count 4.33 mill/uL (4.20-5.40); White Blood Cell (WBC) Count 8.2 thou/uL (4.8-10.8)
[2017-09-08 17:27] LABS: Bilirubin Negative (Negative); Blood, Urine Negative (Negative); Clarity CLOUDY (Clear); Glucose, Urine (Dipstick) Negative (Negative); Leukocyte Negative (Negative); Nitrite Negative (Negative); Protein, Urine (Dipstick) 30 mg/dL (Neg-Trace); pH, Urine 8.5 (5.0-9.0)
[2017-09-08 17:30] LABS: Bacteria/HPF None Seen HPF (None Seen); Hyaline Casts/LPF 0-3 HYALINE CAST LPF (0-3 Hyaline); RBC/HPF 0-3 HPF (0-3); Squamous Epithelial None Seen HPF (0-3); WBC/HPF None Seen HPF (0-3)
[2017-09-08 17:54] LABS: Anion Gap 15 mmol/L (10-20); BUN (Urea Nitrogen) 10 mg/dL (9.8-20.1); Calc. Creatinine Clearance 64 mL/min (70-130); Calcium 9.1 mg/dL (7.8-10.44); Carbon Dioxide 25 mmol/L (23-31); Chloride 98 mmol/L (98-107); Estimated GFR-MDRD 71; Glucose 107 mg/dL (80-115); Potassium 4.1 mmol/L (3.5-5.1); Sodium 134 mmol/L (136-145)
--- NOTE | 2017-09-08 20:02 | RAD ---
TWO VIEW CHEST: 09/08/17 HISTORY: Recent cholecystectomy. Fever COMPARISON: 09/03/17. FINDINGS: The free intraperitoneal air is not apparent on the current study. There is right basilar atelectasis and/or infiltrate. Inflammatory infiltrates should be considered given the history of fever. Elevat ed right hemidiaphragm again noted. Left lung appears clear with calcified granuloma in the left lung base. IMPRESSION: Right basilar atelectasis and/or infiltrate with elevated right hemidiaphragm again noted. POS: [facility]
[2017-09-08] MEDS: HYDROcodone/Acetaminophen 10/325 mg Tablet PO PRN (21:18)
[2017-09-08] MEDS ORDERED: Fluconazole In NaCl,Iso-Osm 200 MG in Premix Bag 1 BAG IVPB SCH (21:45)
--- NOTE | 2017-09-08 21:57 | CT ---
CT PULMONARY ANGIO STUDY CHEST: 09/08/17 Multiple axial tomograms obtained through the chest per pulmonary angio protocol. Multiplanar reconst ruction and 3D postprocessing. HISTORY: Shortness of breath. Question pulmonary embolus. FINDINGS: Pulmonary arteries are well opacified. No evidence of pulmonary embolus. Thoracic aorta is unremarkab le. No dissection. Small right pleural effusion. Right basilar atelectasis. Lungs otherwise clear. Calcified granuloma i n the left lung base. IMPRESSION: 1. No evidence pulmonary embolus. 2. Small right effusion. Dense right basilar atelectasis or consolidation. POS: [facility]
--- NOTE | 2017-09-08 22:06 | CT ---
CT ABDOMEN AND PELVIS WITH CONTRAST: 09/08/17 Multiple axial tomograms obtained through the abdomen and pelvis with IV enhancement. Oral contrast w as given. HISTORY: Abdominal pain. Questioned abscess. Followup to recent exam. COMPARISON: Comparison made to recent CT abdomen and pelvis of 09/04/17. FINDINGS: Small right pleural effusion again noted with right basilar atelectasis, similar in appearance to the prior exam. Liver, spleen, and pancreas unremarkable. Kidneys are unremarkable. There extraluminal fluid and gas collection seen adjacent to the right colon at the hepatic flexure a long the lateral margin of the colon. This is measured at approximately 6 cm AP dimension x 2.6 cm in width in the axial plane. There is mesenteric edema in the right abdomen adjacent to the right colon . The enteric leak noted previously is not apparent today. Small amount of fluid in the deep pelvis. Diverticulosis again noted. IMPRESSION: Extraluminal fluid and gas collection along the lateral margin of the right colon at the hepatic flex ure is noted as described above. POS: [facility]
[2017-09-08] MEDS ORDERED: Ibuprofen 600 MG TAB PO PRN (23:59)
[2017-09-09] MEDS: Piperacillin/Tazobactam 3.375 GM in Sodium Chloride 0.9% 100 ML IVPB SCH ×3 (05:46→18:12)
[2017-09-09] MEDS: Ondansetron HCl/PF 4 MG/2 ML Vial IVP PRN (05:46)
[2017-09-09] MEDS: Enoxaparin Sodium 40 MG/0.4 ML SYRINGE SC SCH (09:37)
[2017-09-09] MEDS: Fluconazole In NaCl,Iso-Osm 200 MG in Premix Bag 1 BAG IVPB SCH (09:37)
[2017-09-09] MEDS: Famotidine/PF 20 mg/2ml Vial SLOW IVP SCH ×2 (09:37→20:34)
[2017-09-09] MEDS: Famotidine 20 MG TAB PO SCH ×2 (09:38→20:20)
[2017-09-09] MEDS: HYDROcodone/Acetaminophen 10/325 mg Tablet PO PRN ×2 (09:59→16:12)
[2017-09-09] MEDS ORDERED: Ibuprofen 600 MG TAB PO PRN (10:44)
[2017-09-09] MEDS ORDERED: traMADol HCl 50 MG TAB PO PRN ×2 (10:44)
[2017-09-09] MEDS ORDERED: Acetaminophen 500 MG TAB PO PRN (10:44)
--- NOTE | 2017-09-09 11:03 | PRG ---
DATE OF SERVICE: 09/09/2017 SUBJECTIVE: Ms. Rodriguez is doing well today. She had a fever to 102 degrees yesterday. Laboratorie s were not drawn today. The patient is tolerating a GI soft diet. OBJECTIVE: LUNGS: Clear to auscultation. CARDIAC: Regular rate and rhythm without murmur or gallop. ABDOMEN: Soft. Bowel sounds present. Abdomen is nondistended. Surgical wound dressings dry, mild tenderness postoperatively, but no discrete focal tenderness. ASSESSMENT AND PLAN: CAT scan 2 days ago revealed a fluid collection in right subhepatic. I have re viewed with radiologist in light of her fever yesterday. We will plan CT-guided drainage. We will a nurses to teach her drain care, anticipate discharge on oral antibiotics in the next day or two. She can resume her diet after CT-guided drainage.
[2017-09-09 11:31] LABS: INR-International Normal Ratio 1.2; PTT 41.9 SEC (22.9-36.1); Prothrombin Time 15.1 SEC (12.0-14.7)
[2017-09-09] MEDS ORDERED: Fentanyl 100 MCG/2 ML VIAL ONE (12:02)
[2017-09-09] MEDS ORDERED: Sodium Bicarbonate 2.5 MEQ/5 ML VIAL ONE (12:02)
[2017-09-09] MEDS ORDERED: Midazolam HCl 2 mg/2 ml Vial ONE (12:02)
--- NOTE | 2017-09-09 14:33 | CT ---
CT GUIDED RIGHT ABDOMINAL ABSCESS DRAINAGE. HISTORY: Right abdominal abscess. FINDINGS: After explaining the procedure and answering all questions, the anterior right abdomen was prepped an d draped in the usual sterile fashion. Sterile technique, buffered local anesthesia, CT guidance, an d a right anterior approach were used to carefully advance a 19-gauge needle into the fluid collectio n just lateral to the hepatic flexion of the colon. A 0.035 guidewire was used to hold position. Tr act was dilated to 8 [place], and an 8 [place] locking loop drain was placed into the fluid cavity. 25 cc of cloudy yellow liquid was aspirated and sent to pathology for evaluation. The catheter was s ecured externally and left draining to gravity. The patient tolerated the procedure well and was ret urned in improved condition. IMPRESSION: Technically successful CT-guided right abdominal abscess drainage. Pathology is pending. POS: [facility]
[2017-09-09] MEDS ORDERED: ALPRAZolam 0.5 MG TAB PO PRN (19:21)
[2017-09-09] MEDS ORDERED: Ondansetron ODT 4 MG TAB PO PRN (19:21)
[2017-09-09] MEDS ORDERED: Atorvastatin Calcium 10 MG TAB PO SCH (21:00)
[2017-09-10] MEDS: Piperacillin/Tazobactam 3.375 GM in Sodium Chloride 0.9% 100 ML IVPB SCH ×4 (01:04→15:28)
[2017-09-10] MEDS: HYDROcodone/Acetaminophen 10/325 mg Tablet PO PRN (01:05)
[2017-09-10 04:43] LABS: #Basophils 0.1 thou/uL (0.0-0.2); #Eosinphils 0.6 thou/uL (0.0-0.7); #Lymphocytes 1.6 thou/uL (1.20-3.40); #Monocytes 1.1 thou/uL (0.11-0.59); #Neutrophils 5.7 thou/uL (1.40-6.50); %Basophils 0.6 % (0.0-1.0); %Eosinophils 6.5 % (0.0-10.0); %Lymphocytes 17.3 % (21.0-51.0); %Monocytes 12.4 % (0.0-10.0); %Neutrophils 63.2 % (42.0-75.0); Hemoglobin 10.9 g/dL (12.0-16.0); Mean Corpuscular HGB CONC 32.1 g/dL (32.0-36.0); Mean Corpuscular Volume 90.5 fl (81.0-99.0); Platelet Count 379 thou/uL (130-400); RBC Distribution Width 12.3 % (11.5-14.5); Red Blood Cell (RBC) Count 3.77 mill/uL (4.20-5.40); White Blood Cell (WBC) Count 9.1 thou/uL (4.8-10.8)
[2017-09-10 05:00] LABS: Anion Gap 11 mmol/L (10-20); BUN (Urea Nitrogen) 13 mg/dL (9.8-20.1); Calc. Creatinine Clearance 61 mL/min (70-130); Calcium 8.6 mg/dL (7.8-10.44); Carbon Dioxide 28 mmol/L (23-31); Chloride 102 mmol/L (98-107); Estimated GFR-MDRD 68; Glucose 102 mg/dL (80-115); Potassium 4.3 mmol/L (3.5-5.1); Sodium 137 mmol/L (136-145)
[2017-09-10] MEDS: Famotidine/PF 20 mg/2ml Vial SLOW IVP SCH (08:45)
[2017-09-10] MEDS: Enoxaparin Sodium 40 MG/0.4 ML SYRINGE SC SCH (08:46)
[2017-09-10] MEDS: Fluconazole In NaCl,Iso-Osm 200 MG in Premix Bag 1 BAG IVPB SCH (08:46)
[2017-09-10] MEDS: Famotidine 20 MG TAB PO SCH (08:47)
[2017-09-10] MEDS ORDERED: Bupropion 150 MG XL TAB PO SCH (09:00)
[2017-09-10] MEDS ORDERED: Polyethylene Glycol 3350 17 GM Packet PO SCH (09:00)
[2017-09-10 12:05] VITALS: BP 157/91; TEMP 98
--- NOTE | 2017-09-10 15:46 | PRG ---
DATE OF SERVICE: 09/10/2017 SUBJECTIVE: Lavinia Rodriguez is doing well today. She underwent CT-guided drainage of the right subhepa tic fluid collection, recorded by radiologist is yellow, cloudy fluid. Gram stain was negative for a ny organisms. She has not had any fever in 48 hours. This morning, white count is 9, hemoglobin 10. 9 and her basic metabolic profile is normal. OBJECTIVE: LUNGS: Clear to auscultation. CARDIAC: Regular rate and rhythm without murmur or gallop. ABDOMEN: Soft, nontender. EXTREMITIES: Overall, she is doing well. ASSESSMENT AND PLAN: At this point, she can be discharged home. She has been instructed on drain ca re, it has been clarified that she should irrigate the drain into the abdominal cavity, not into the drain bag. She recorded the drainage output. She will follow up with Dr. Galindo later this week. Me dication prescription has been given, Zofran, Levaquin and Flagyl for 5 days and [place] 10/325 as need ed for pain.
--- NOTE | 2017-12-13 08:24 | DIS ---
DISCHARGE DIAGNOSIS: Small bowel enterotomy with abscess. PROCEDURES DURING ADMISSION: Diagnostic laparoscopy converted to exploratory laparotomy with repair of enterotomy and drainage of abscess. HOSPITAL COURSE: The patient was admitted. CT scan was performed. She was taken to the operating r oom where she underwent attempted laparoscopy, was unable to find the source to convert to an open pr ocedure. The enterotomies were repaired. The abscess was drained. Postoperatively, she did well. She did have a second area of abscess that required CT-guided drainage. Bowel function returned. Arturo westbrook was discharged home tolerating a regular diet, bowels function well. She will follow up with me in 2 weeks.
== END 2017-09-10 15:27 | disposition home or self-care (01) | DRG 856 ==
LOC: ERS 16:08 → SURG A 18:00
PROVIDERS: ADMIT Surgery; ATTEND Surgery
PROC: 0DQ80ZZ Repair Small Intestine, Open Approach (ICD-10-PCS; principal; 2017-09-04)
PROC: 0WJP4ZZ Inspection of Gastrointestinal Tract, Percutaneous Endoscopic Approach (ICD-10-PCS; 2017-09-04)
PROC: 0W9F00Z Drainage of Abdominal Wall with Drainage Device, Open Approach (ICD-10-PCS; 2017-09-04)
PROC: 0W9F30Z Drainage of Abdominal Wall with Drainage Device, Percutaneous Approach (ICD-10-PCS; 2017-09-09)
DX: T81.4XXA Infection following a procedure, initial encounter (principal); K65.1 Peritoneal abscess; K63.0 Abscess of intestine; K21.9 Gastro-esophageal reflux disease without esophagitis; F17.210 Nicotine dependence, cigarettes, uncomplicated; E78.5 Hyperlipidemia, unspecified; F32.9 Major depressive disorder, single episode, unspecified; Z90.49 Acquired absence of other specified parts of digestive tract
CPT/HCPCS: 36415; 36416; 49020; 71045; 71046; 71275; 74177; 77002; 80048; 80053; 81001; 81003; 81015; 83605; 83690; 85025; 85610; 85730; 87040; 87070; 87076; 87086; 87205; 87804; 96361; 96365; 96367; 96375; A4216; C1729; J0131; J1100; J1450; J1650; J1885; J2001; J2250; J2405; J2543; J2550; J2704; J3010; J7050; S0028

== ENCOUNTER 2017-11-16 15:52 | Emergency (ER) | payer BC ==
[2017-11-16 16:21] LABS: #Basophils 0.1 thou/uL (0.0-0.2); #Eosinphils 0.3 thou/uL (0.0-0.7); #Lymphocytes 2.5 thou/uL (1.20-3.40); #Monocytes 0.8 thou/uL (0.11-0.59); #Neutrophils 7.8 thou/uL (1.40-6.50); %Basophils 1.1 % (0.0-1.0); %Eosinophils 2.3 % (0.0-10.0); %Lymphocytes 21.4 % (21.0-51.0); %Monocytes 6.8 % (0.0-10.0); %Neutrophils 68.4 % (42.0-75.0); Hemoglobin 14.2 g/dL (12.0-16.0); Mean Corpuscular HGB CONC 33.4 g/dL (32.0-36.0); Mean Corpuscular Hemoglobin 28.6 pg (27.0-31.0); Mean Corpuscular Volume 85.4 fl (81.0-99.0); Mean Platelet Volume 8.6 fL (7.4-10.4); Platelet Count 296 thou/uL (130-400); RBC Distribution Width 12.1 % (11.5-14.5); Red Blood Cell (RBC) Count 4.96 mill/uL (4.20-5.40); White Blood Cell (WBC) Count 11.5 thou/uL (4.8-10.8)
[2017-11-16 16:30] LABS: ALT (SGPT) 37 U/L (8-55); AST (SGOT) 32 U/L (5-34); Albumin 4.1 g/dL (3.4-4.8); Alkaline Phosphatase 138 U/L (40-150); Anion Gap 14 mmol/L (10-20); BUN (Urea Nitrogen) 11 mg/dL (9.8-20.1); Bilirubin, Total 0.5 mg/dL (0.2-1.2); Calc. Creatinine Clearance 0 mL/min (70-130); Calcium 9.7 mg/dL (7.8-10.44); Carbon Dioxide 25 mmol/L (23-31); Chloride 104 mmol/L (98-107); Estimated GFR-MDRD 76; Globulin 3.5 g/dL (2.4-3.5); Glucose 127 mg/dL (80-115); Lipase 18 U/L (8-78); Potassium 3.8 mmol/L (3.5-5.1); Protein, Total 7.6 g/dL (6.0-8.3); Sodium 139 mmol/L (136-145)
[2017-11-16 16:34] LABS: CKMB 0.6 ng/mL (0-6.6); Troponin I Less than 0.010 ng/mL (< 0.028)
[2017-11-16 16:40] LABS: Bilirubin Negative (Negative); Blood, Urine Negative (Negative); Clarity Clear (Clear); Glucose, Urine (Dipstick) Negative (Negative); Leukocyte Negative (Negative); Nitrite Negative (Negative); Protein, Urine (Dipstick) Negative (Neg-Trace); Urobilinogen 0.2 mg/dL (0.2-1.0); pH, Urine 6.5 (5.0-9.0)
[2017-11-16 16:41] LABS: Specific Gravity, Urine 1.004 (1.002-1.036)
[2017-11-16] MEDS ORDERED: Ondansetron HCl/PF 4 MG/2 ML Vial ONE (17:24)
[2017-11-16] MEDS ORDERED: Morphine 10 MG/ML VIAL ONE (17:24)
--- NOTE | 2017-11-16 20:33 | CT ---
CT OF THE ABDOMEN AND PELVIS WITH CONTRAST: 11/16/17 COMPARISON: 09/08/17 HISTORY: Suprapubic abdominal pain and elevated white blood cell count. History of cholecystectomy with biliar y leakage. TECHNIQUE: Multiple contiguous axial images were obtained in a CT of the abdomen and pelvis with contrast. PO co ntrast was administered. Coronal reformats were performed. FINDINGS: There is scattered diverticula in the colon. There are stranding changes surrounding the sigmoid colo n and thickening of the wall of the sigmoid colon in the region of these diverticula and this most li luz elena represents acute diverticulitis. No free air or free fluid are seen in the abdomen or pelvis. The liver, adrenal glands, kidneys, spleen, and pancreas are unremarkable. The gallbladder has been r emoved. The small bowel is unremarkable. No abdominal or pelvic lymphadenopathy are seen. Atherosclerotic tiara cifications are seen in the aorta. Degenerative changes are seen in the spine. There is a calcified granuloma in the left lung base. The abdominal wall soft tissues are unremarkable. IMPRESSION: Acute diverticulitis. POS: [facility]
== END 2017-11-16 18:16 | disposition home or self-care (01) ==
LOC: SCSER 15:52
DX: K57.32 Diverticulitis of large intestine without perforation or abscess without bleeding (principal); E78.5 Hyperlipidemia, unspecified; F32.9 Major depressive disorder, single episode, unspecified; F17.210 Nicotine dependence, cigarettes, uncomplicated; Z79.899 Other long term (current) drug therapy
CPT/HCPCS: 74177; 80053; 81003; 82553; 83690; 84484; 85025; 93005; 96361; 96374; J2270; J2405

== ENCOUNTER 2018-04-10 12:52 | Outpatient (CLI) | payer BC ==
--- NOTE | 2018-04-16 15:43 | MMO ---
BILATERAL SCREENING MAMMOGRAM: Date: 04/10/18 HISTORY: Screening. COMPARISON: Mammogram from 2012. TECHNIQUE: Bilateral screening CC and MLO mammograms. This patient's mammogram was interpreted with the assistance of computer-aided detection. FINDINGS: There are benign calcifications throughout both breasts. No suspicious mass, architectural distortion , or microcalcifications. IMPRESSION: BIRADS 2: Benign Finding(s) Continued annual mammographic screening is recommended. POS: [facility]
== END 2018-04-10 12:53 | disposition home or self-care (01) ==
LOC: SCSMAMMO 12:52
PROVIDERS: ATTEND Family Medicine
DX: Z12.31 Encounter for screening mammogram for malignant neoplasm of breast (principal)
CPT/HCPCS: 77067